=== PATIENT | male | born 1975 | race Asian ===

== ENCOUNTER 2021-05-15 18:41 | Outpatient (REF) | payer MEDICAID, SELFPAY ==
[2021-05-15 19:29] LABS: ESR 24 mm/hr (0-15)
[2021-05-15 19:31] LABS: HCT 41.1 % (40.0-50.0); HGB 14.2 g/dL (13.5-17.5); MCH 31.7 pg (27.0-33.0); MCHC 34.5 % (32.0-36.0); MCV 91.7 fL (80-95); MPV 9.8 fL (8.0-11.0); Platelet Count 252 10^3/uL (130-400); RBC 4.48 10^6/uL (4.36-5.78); RDW-SD 40.4 fL; WBC 9.81 10^3/uL (4.4-10.8)
[2021-05-15 19:46] LABS: Uric Acid 5.2 mg/dL (3.5-7.2)
== END 2021-05-15 18:42 | disposition home or self-care (01) ==
LOC: NCHCN 18:41
PROVIDERS: PCP Nurse Practitioner Adult Health; Visit Provider Nurse Practitioner Family
DX: M25.562 Pain in left knee (principal)
CPT/HCPCS: 85027; 85652; 84550

== ENCOUNTER 2021-05-16 16:07 | Outpatient (CLI) | payer MEDICAID, SELFPAY ==
--- NOTE | 2021-05-16 | DI.RAD_ITS ---
Exam(s) XR KNEE LT 3V AP,LAT,SALVADOR EXAM: XR KNEE LT 3V AP,LAT,SALVADOR CLINICAL HISTORY: ACUTE LT KNEE PAIN, M25.562 TECHNIQUE: COMPARISON: No exams were available for comparison FINDINGS: Three views were obtained. Cartilaginous joint spaces appear well maintained. No bony abnormality s een. There appears to be a knee joint effusion, as seen on the lateral view. IMPRESSION: RADIATION DOSE DELIVERED: Total DLP
== END 2021-05-16 16:27 ==
PROVIDERS: PCP Nurse Practitioner Adult Health; Visit Provider Nurse Practitioner Family
DX: M25.562 Pain in left knee (principal)
CPT/HCPCS: 73562